=== PATIENT | female | born 1980 | race Hispanic/Latino ===

== ENCOUNTER 2021-05-03 19:29 | Emergency (ER) | payer SELFPAY ==
[~2021-05-03] VITALS: Ht 162.6 cm; Wt 77.1 kg
[~2021-05-03 19:29] MED LIST: HYDROCHLOROTHIA25 MG PO; MOTRIN200 MG PO; TYLENOL WITH C1 EACH PO
[2021-05-03 20:30] LABS: BASOPHILS # (AUTO) 0.1 (0.0-0.1); BASOPHILS % 0.5 % (0.0-1.0); EOSINOPHILS # (AUTO) 0.1 (0.0-0.4); HEMATOCRIT 39.8 % (34.2-44.1); HEMOGLOBIN 13.2 g/dL (12.0-16.0); LYMPHOCYTES # (AUTO) 2.2 (1.0-3.2); MEAN CORPUSCULAR HEMOGLOBIN 29.2 pg (28-32); MEAN CORPUSCULAR HGB CONC 33.2 g/dL (31-35); MEAN CORPUSCULAR VOLUME 88.1 fL (81-99); MONOCYTES # (AUTO) 0.7 (0.2-0.8); MONOCYTES % 6.4 % (4.4-11.3); NEUTROPHILS # (AUTO) 7.9 (2.1-6.9); NEUTROPHILS % 71.6 % (38.7-80.0); PLATELET COUNT 418 x10e3/uL (140-360); RED BLOOD COUNT 4.52 x10e6/uL (3.6-5.1); RED CELL DISTRIBUTION WIDTH 14.6 % (11.7-14.4)
[2021-05-03 20:44] LABS: ALBUMIN 3.7 g/dL (3.5-5.0); ALBUMIN/GLOBULIN RATIO 0.8 (0.8-2.0); ANION GAP 14.8 mmol/L (8-16); CALCIUM 9.7 mg/dL (8.4-10.2); CREATININE, SERUM 0.73 mg/dL (0.57-1.11); POTASSIUM 3.8 mmol/L (3.5-5.1)
[2021-05-03 20:47] LABS: LIPASE 34 U/L (8-78)
== END 2021-05-03 22:14 | disposition home or self-care (01) ==
LOC: ER 19:59
DX: R07.9 Chest pain, unspecified (principal)
CPT/HCPCS: 36415; 71045; 80053; 83690; 84484; 84702; 85025; 85379; 93005; 99283

== ENCOUNTER 2022-07-26 19:10 | Emergency (ER) | payer SELFPAY ==
[~2022-07-26] VITALS: Ht 162.6 cm; Wt 77.1 kg
[2022-07-26 20:04] LABS: CLARITY,URINE SL CLOUDY (CLEAR); COLOR,URINE YELLOW (YELLOW); KETONES,URINE NEGATIVE (NEGATIVE); LEUKOCYTE ESTERASE ,URINE NEGATIVE (NEGATIVE); NITRITE,URINE NEGATIVE (NEGATIVE); PROTEIN,URINE DIPSTICK NEGATIVE (NEGATIVE); URINE UROBILINOGEN 0.2 mg/dL (0.2 - 1)
[2022-07-26 20:16] LABS: BACTERIA,URINE FEW /HPF; EPITHELIAL CELLS,URINE MANY /LPF; RBC,URINE 0-5 /HPF (0-5)
[2022-07-26] MEDS ORDERED: IBUPROFEN600 MG PO (20:24)
[2022-07-26] MEDS ORDERED: METHOCARBAMOL750 MG PO (20:24)
== END 2022-07-26 20:30 | disposition home or self-care (01) ==
LOC: ER 19:23
DX: M54.6 Pain in thoracic spine (principal); M54.50 Low back pain, unspecified; R30.0 Dysuria
CPT/HCPCS: 81001; 81025; 99282